=== PATIENT | male | born 1980 | race African-American/Black ===

== ENCOUNTER 2021-04-08 14:02 | Emergency (ER) | payer SELFPAY ==
[2021-04-08 14:22] VITALS: BP 137/78; PULSE 72; RESP 16; TEMP 36.7; O2SAT 99
--- NOTE | 2021-04-08 14:27 | DI.RAD.S_ITS ---
PROCEDURE: XR HAND LT MIN 3V INDICATIONS: complex dog bite. TECHNIQUE: 3 views of the hand(s) acquired. COMPARISON: None. FINDINGS: Bones: No fractures or dislocations. Carpal bones are normally aligned. No suspicious bony lesions. Soft tissues: No suspicious soft tissue calcifications. Thenar soft tissue swelling noted. IMPRESSION: Soft tissue swelling without fracture or foreign body Approved by: Jerrod French M.D. on 04/08/2021 at 14:33
[2021-04-08] MEDS: ACETAMINOPHEN 325 MG TABLET 975 MG PO (16:50)
[2021-04-08] MEDS: IBUPROFEN 400 MG TABLET 800 MG PO (16:50)
--- NOTE | 2021-04-08 17:37 | ED_ITS ---
HPI - Animal Bite General Chief Complaint: Animal Bite Stated Complaint: Dog bite Time Seen by Provider: 04/08/21 17:37 History of Present Illness HPI narrative: Patient is a 41-year-old right-handed male who presents with dog bite to left hand. He states that he has both a dog and a cat at home they do not get along. The dog is actually afraid of the cat, the cat cornered the dog. Patient tried to get the middle and dog bit patient can not. Dog's shots are up-to-date. Patient's shots are up-to-date. Significant swelling and pain. Bite is in the thenar eminence. No numbness tingling or weakness. Related Data Previous Rx's Medication Instructions Recorded amoxicillin 875 mg-potassium 1 tab PO Q12H #20 tab 04/08/21 clavulanate 125 mg tablet (Augmentin) hydrocodone 5 mg-acetaminophen 325 1 tab PO Q6H PRN #10 tab 04/08/21 mg tablet Allergies Allergy/AdvReac Type Severity Reaction Status Date / Time No Known Drug Allergies Allergy Verified 04/08/21 14:26 Review of Systems Review of Systems Narrative: GENERAL: Denies chills,fever HEENT: Denies throat pain RESPIRATORY: Denies dyspnea, cough, wheezing CARDIOVASCULAR: Denies chest pain, palpitations GASTROINTESTINAL: Denies nausea, vomiting MUSCULOSKELETAL: Denies extremity pain, injury SKIN: See HPI NEUROLOGIC: Denies weakness, dizziness, headache, numbness 8 point review of systems is negative except for those stated above and HPI Patient History Social History Smoking Status: Never smoker Smoking Status: Never smoker alcohol intake frequency: 0-2 drinks per day Substance Use Type: marijuana Exam Initial Vital Signs Initial Vital Signs: Vital Signs Temperature 98.1 F 04/08/21 14:22 Pulse Rate 72 04/08/21 14:22 Respiratory Rate 16 04/08/21 14:22 Blood Pressure 137/78 04/08/21 14:22 Pulse Oximetry 99 04/08/21 14:22 GENERAL: Alert well-appearing 41-year-old male CARDIOVASCULAR: peripheral pulses in tact, cap refill <2 sec RESPIRATORY: No respiratory distress, speaks in full sentences without difficulty EXTREMITIES: Normal range of motion, no clubbing or edema. Neurovascularly intact Left hand significant swelling of thenar eminence is remainder of motion decreased secondary to be not eminence swelling but able to resist with thumb NEUROLOGICAL: Cranial nerves II through XII grossly intact. Normal gait and speech. SKIN: Left hand significant swelling of thenar eminence puncture wounds on both sides, the largest on thenar eminence measuring 1 cm Course Orders Ordered: ED Orders 04/08/21 14:27 XR hand LT min 3V Stat Discontinued Medications Acetaminophen (Acetaminophen 325 Mg Tablet) 975 mg PO NOW ONE Stop: 04/08/21 16:03 Last Admin: 04/08/21 16:50 Dose: 975 mg Documented by: JOSE Hydrocodone Bitart/Acetaminophen (Hydrocodone/Acet 5/325 Prepack) 1 bottle MISC SEEINSTR ONE Stop: 04/08/21 17:47 Last Admin: 04/08/21 18:08 Dose: 1 bottle Documented by: JOSE Amoxicillin/Clavulanate Potassium (Amoxicillin/Clav 875/125 Mg) 1 tab PO NOW ONE Stop: 04/08/21 17:47 Last Admin: 04/08/21 18:08 Dose: 1 tab Documented by: JOSE Ibuprofen (Ibuprofen 400 Mg Tablet) 800 mg PO NOW ONE Stop: 04/08/21 16:03 Last Admin: 04/08/21 16:50 Dose: 800 mg Documented by: JOSE Vital Signs Vital signs: Vital Signs - 8 hr 04/08/21 14:22 04/08/21 18:13 Temperature 98.1 F Pulse Rate 72 63 Respiratory Rate 16 16 Blood Pressure 137/78 120/67 Pulse Oximetry 99 100 MDM - Animal Bite Imaging Data Extremity x-ray #1: Radiologist's Impression: PROCEDURE:? XR HAND LT MIN 3V ? INDICATIONS:? complex dog bite. ? TECHNIQUE:? 3 views of the hand(s) acquired.? ? COMPARISON:? None. ? FINDINGS:? ? Bones:? No fractures or dislocations.? Carpal bones are normally aligned.? No suspicious bony lesions.? ? Soft tissues:? No suspicious soft tissue calcifications.? Thenar soft tissue swelling noted. ? ? IMPRESSION:? Soft tissue swelling without fracture or foreign body ? ? ? Approved by: Jerrod French M.D. on 04/08/2021 at 14:33 Discharge Plan Departure Patient Disposition: Home Clinical Impression: Dog bite Instructions: DI for Dog Bite Activity Restrictions/Additional Instructions: *You have been diagnosed with dog bite left hand *What to do: Elevate and ice as needed. Monitor closely. *Continue to take medications as directed Augmentin 875 mg 1 pill twice daily for 10 days Ibuprofen 800 mg every 8 hours if needed for [id number] pain [place] 1 tablet every 6 hours if needed for severe pain recommend at night for sleeping *Follow up with your primary care provider in 2-3 days or call [phone] *Return to ER if you should have increasing redness drainage pain swelling or any new, worsening or concerning symptoms To signify narcotic CONTROLLED SUBSTANCE DISCHARGE (Narcotoic/benzodiazepine/Flexeril/Phenergan) 1. You have been prescribed narcotic medications, it does have acetaminophen/Tylenol/paracetamol in it, DO NOT TAKE MORE THAN 4,00mg in 24 hours of Tylenol. TRAMADOL DOES NOT CONTAIN TYLENOL 2. Please understand that we cannot provide further refills of narcotics, benzodiazepines or controlled substances through the ED and her pain management will need to be through your provider. 3. While on these medications you cannot drive or operate heavy machinery. 4. You cannot sign legal documents or perform any duties such as this. 5. As long as you're taking opiate pain medications he should also be taking a stool softener such as Colace, Dulcolax, MiraLAX or prune juice, to help avoid constipation. Prescriptions: New hydrocodone-acetaminophen 5-325 mg tablet 1 tab PO Q6H PRN (Reason: pain) Qty: 10 0RF amoxicillin-pot clavulanate [Augmentin] 875-125 mg tablet 1 tab PO Q12H Qty: 20 0RF Stand Alone Forms: Work Release Note
[2021-04-08] MEDS: HYDROCODONE/ACET 5/325 PREPACK 1 BOTTLE MISC (18:08)
[2021-04-08] MEDS: AMOXICILLIN/CLAV 875/125 MG 1 TAB PO (18:08)
[2021-04-08 18:13] VITALS: BP 120/67; PULSE 63; RESP 16; O2SAT 100
== END 2021-04-08 18:14 | disposition home or self-care (01) ==
PROVIDERS: Emergency Provider Emergency Medicine
DX: S61.452A Open bite of left hand, initial encounter (principal); W54.0XXA Bitten by dog, initial encounter
CPT/HCPCS: 73130; 99283